=== PATIENT | female | born 1950 | race African-American/Black ===

== ENCOUNTER 2018-02-23 08:18 | Outpatient (CLI) | payer MEDICARE | END 2018-02-23 08:19 | disposition home or self-care (01) | LOC: BICMAMMO 08:18 | PROVIDERS: ATTEND Family Medicine | DX: Z12.31 Encounter for screening mammogram for malignant neoplasm of breast (principal); Z80.3 Family history of malignant neoplasm of breast | CPT/HCPCS: 77063; 77067 ==

== ENCOUNTER 2019-03-02 09:08 | Outpatient (CLI) | payer MEDICARE ==
--- NOTE | 2019-03-02 10:14 | MMO ---
Bilateral MAMMO Bilat Screen [facility]. CLINICAL HISTORY: Patient is 68 years old and is seen for screening. The patient has the following family history of breast cancer: daughter. The patient has no personal history of cancer. VIEWS: The views performed were: bilateral craniocaudal with tomosynthesis and bilateral mediolateral oblique with tomosynthesis. FILMS COMPARED: The present examination has been compared to a prior imaging study performed at [facility] on 02/23/2018. MAMMOGRAM FINDINGS: There are scattered fibroglandular densities. There are no suspicious masses, suspicious calcifications, or new areas of architectural distortion. IMPRESSION: THERE IS NO MAMMOGRAPHIC EVIDENCE OF MALIGNANCY. A ROUTINE FOLLOW-UP MAMMOGRAM IN 1 YEAR IS RECOMMENDED. THE RESULTS OF THIS EXAM WERE SENT TO THE PATIENT. ACR BI-RADS Category 1 - Negative MAMMOGRAPHY NOTE: 1. A negative mammogram report should not delay a biopsy if a dominant of clinically suspicious mass is present. 2. Approximately 10% to 15% of breast cancers are not detected by mammography. 3. Adenosis and dense breasts may obscure an underlying neoplasm.
== END 2019-03-02 09:09 | disposition home or self-care (01) ==
LOC: BICMAMMO 09:08
PROVIDERS: ATTEND Family Medicine
DX: Z12.31 Encounter for screening mammogram for malignant neoplasm of breast (principal); Z80.3 Family history of malignant neoplasm of breast
CPT/HCPCS: 77063; 77067

== ENCOUNTER 2019-06-23 13:22 | Outpatient (CLI) | payer MEDICARE ==
--- NOTE | 2019-06-23 14:27 | ULT ---
RIGHT LOWER EXTREMITY ARTERIAL DOPPLER STUDY: INDICATION: Pain and edema right lower extremity. FINDINGS: Arteries of the right lower extremity were evaluated with color Doppler, spectral analysis, and veloc ity recordings at all segments. FINDINGS: There is normal triphasic waveform seen involving all the arteries of the right lower extremity. Art eries interrogated including the common femoral artery, profunda, superficial femoral artery, poplite al, anterior tibial artery, posterior tibial artery, and dorsal pedis. Velocities are symmetric throughout these vessels. IMPRESSION: No evidence of significant peripheral arterial disease is identified in the right lower extremity by Doppler and spectral analysis. POS: Alvaro
== END 2019-06-23 13:23 | disposition home or self-care (01) ==
LOC: ULT 13:22
PROVIDERS: ATTEND Family Medicine
DX: R60.0 Localized edema (principal)
CPT/HCPCS: 93923

== ENCOUNTER 2019-12-25 11:16 | Observation (INO) | payer MEDICARE ==
[2019-12-25] MEDS ORDERED: diphenhydrAMINE 50 MG/ML VIAL ONE (11:52)
[2019-12-25] MEDS ORDERED: Metoclopramide HCl 10 MG/2 ML VIAL ONE (11:52)
[2019-12-25] MEDS ORDERED: Acetaminophen 500 MG TAB ONE (11:52)
--- NOTE | 2019-12-25 12:16 | CT ---
CT head noncontrast HISTORY: Headache. Hypertension. FINDINGS: There is no evidence of acute intracranial hemorrhage or infarct. Mild diffuse cortical atr ophy and chronic ischemic small vessel disease. There is no mass effect or shift of midline structures. Visualized paranasal sinuses remain well aera bryon. IMPRESSION : Chronic-type findings. No acute intracranial abnormalities are demonstrated.
[2019-12-25 13:11] LABS: #Eosinphils 0.1 thou/uL (0.0-0.7); #Lymphocytes 1.8 thou/uL (1.20-3.40); #Monocytes 0.6 thou/uL (0.11-0.59); #Neutrophils 2.2 thou/uL (1.40-6.50); %Basophils 0.5 % (0.0-1.0); %Eosinophils 1.7 % (0.0-10.0); %Lymphocytes 38.1 % (21.0-51.0); %Monocytes 12.3 % (0.0-10.0); %Neutrophils 47.4 % (42.0-75.0); Hemoglobin 11.2 g/dL (12.0-16.0); Mean Corpuscular HGB CONC 32.4 g/dL (32.0-36.0); Mean Corpuscular Volume 89.5 fL (78.0-98.0); Mean Platelet Volume 8.1 fL (7.4-10.4); Platelet Count 198 thou/uL (130-400); RBC Distribution Width 12.9 % (11.5-14.5); Red Blood Cell (RBC) Count 3.85 mill/uL (4.20-5.40); White Blood Cell (WBC) Count 4.6 thou/uL (4.8-10.8)
[2019-12-25 13:30] LABS: ALT (SGPT) 28 U/L (8-55); AST (SGOT) 30 U/L (5-34); Albumin 3.9 g/dL (3.4-4.8); Alkaline Phosphatase 149 U/L (40-110); Anion Gap 11 mmol/L (10-20); BUN (Urea Nitrogen) 12 mg/dL (9.8-20.1); Bilirubin, Total 0.2 mg/dL (0.2-1.2); Calc. Creatinine Clearance 0 mL/min (70-130); Carbon Dioxide 28 mmol/L (23-31); Chloride 101 mmol/L (98-107); Estimated GFR-MDRD 86; Globulin 3.6 g/dL (2.4-3.5); Glucose 105 mg/dL (80-115); Potassium 3.8 mmol/L (3.5-5.1); Protein, Total 7.5 g/dL (6.0-8.3); Sodium 136 mmol/L (136-145)
[2019-12-25] MEDS ORDERED: Aspirin 81 mg Enteric Coated Tablet ONE (13:42)
[2019-12-25] MEDS ORDERED: Ondansetron PF 4 MG/2 ML Vial IVP PRN ×2 (16:41→18:18)
[2019-12-25] MEDS ORDERED: Bisacodyl 5 MG TAB PO PRN (16:41)
[2019-12-25] MEDS ORDERED: Acetaminophen 325 MG TAB PO PRN (16:41)
[2019-12-25 17:07] VITALS: BMI 31.7
[2019-12-25] MEDS ORDERED: Dextrose 50% Abboject 50 ML SYRINGE SLOW IVP PRN (18:06)
[2019-12-25] MEDS ORDERED: HumaLOG 300 UNITS/3 ML VIAL SC PRN (18:06)
[2019-12-25] MEDS ORDERED: Dextrose 5% in Water 1,000 ML IV PRN (18:06)
[2019-12-25] MEDS ORDERED: SUMAtriptan Succinate 50 MG TAB PO PRN (18:16)
[2019-12-25] MEDS ORDERED: traMADol HCl 50 MG TAB PO PRN (18:17)
[2019-12-25] MEDS ORDERED: metFORMIN 500 MG TAB PO SCH (21:00)
[2019-12-25] MEDS ORDERED: Non-Formulary Item 1 EACH (Fluticasone/Salmeterol [Advair Diskus 250/50] 1 INH) IH SCH (21:00)
[2019-12-25] MEDS ORDERED: rOPINIRole HCl 0.25 MG TAB PO SCH (21:00)
[2019-12-25] MEDS: carBAMazepine 200 MG TAB PO SCH (21:08)
[2019-12-25] MEDS: Heparin 5,000 UNITS/ML VIAL SC SCH (21:09)
--- NOTE | 2019-12-25 22:11 | HP ---
CHIEF COMPLAINT: Blurred vision, dizziness, imbalance. HISTORY OF PRESENTING ILLNESS: This is a 69-year-old female with a history of hypertension, diabetes, insulin-dependent, sarcoidosis, who is chronically on steroids, presented to the ER with 2 weeks of blurred vision and 1 week of complaints of headache with dizziness and imbalance. The patient also saw her program aide group work and according to the program aide group work, it looks like patient's intra-ocular muscles are weak. He did suggest an MRI of her eye in the next week. The patient got concerned because of increasing imbalance and dizziness and presented to the ER. On presentation in the ER, patient's vital signs were within normal limits. CT scan of the head did not show any acute abnormalities. The patient was treated with some pain medication and also migraine medications with significant improvement in dizziness and imbalance and also the headache. PAST MEDICAL HISTORY: Significant for: 1. Hypertension. 2. Diabetes, insulin-dependent. 3. Sarcoidosis. PAST SURGICAL HISTORY: 1. Lung biopsy, exploratory. 2. Surgical history of . PSYCHIATRIC HISTORY: No previous psychiatric history. SOCIAL HISTORY: Patient denies any alcohol use. Denies any drug use or any smoking history. REVIEW OF SYSTEMS: CONSTITUTIONAL: The patient denies any chills. Denies any fever. The patient denies any vision change. ENT: The patient denies any rhinorrhea or sore throat. CARDIOVASCULAR: The patient denies any chest pain, palpitations. RESPIRATORY: The patient denies any cough or shortness of breath. GI: Denies any nausea. MUSCULOSKELETAL: Denies any pain or swelling in the extremities. No edema. NEUROLOGIC: Please see HPI. PSYCHIATRIC: Denies any psychiatric history. PHYSICAL EXAMINATION: CONSTITUTIONAL: Vital signs reviewed and are stable. HEENT: Slight left-sided facial droop. Nystagmus is present, horizontal left gaze. Examination of the nose is within normal limits. Pharynx examination is within normal limits. Normal range of motion of neck, trachea is midline. RESPIRATORY/CHEST: Breath sounds are clear. No wheezing, no rales. Chest movement is symmetrical and expansion is equal. CARDIOVASCULAR: Shows regular rate and rhythm. No murmurs. BACK: Normal for inspection and range of motion is intact. EXTREMITIES: No redness, no swelling, no edema. NEUROLOGIC: Nystagmus is present, horizontal to the left eye, difficulty with [id number] on the left. Slight left-sided facial droop. PSYCHIATRIC: Normal affect. Awake and alert. RADIOLOGY: A CT of the head did not show any acute abnormalities. Code status: DW Patient and she is full code ASSESSMENT AND PLAN: 1. Blurred vision, double vision. 2. Dizziness with imbalance. Admit the patient to rule out CVA, CT of the head is within normal limits, we will follow up on the MRI of the head, MRA of the head and neck without contrast. PT and OT consulted. Start the patient on aspirin and statin. 3. Headache: Address issues of headache, Tylenol, ibuprofen. 4. Diabetes. Continue home insulin and oral hypoglycemics. 5. Hypertension. Please continue all the home medications. 6. Sarcoidosis. Continue home steroids. Job ID: [id number] [facility]
[2019-12-26 05:32] LABS: Band 1 % (5-11); Eosinophils 2 % (0-10); Hemoglobin 11.3 g/dL (12.0-16.0); Hypochromia SLIGHT = 6-15 cells (100X) (0-5/hpf); Lymphocytes 30 % (21-51); MDiff Complete? YES; Mean Corpuscular Hemoglobin 28.8 pg (27.0-31.0); Mean Platelet Volume 8.2 fL (7.4-10.4); Metamyelocyte 1 % (0-0); Monocytes 11 % (0-10); Neutrophil 55 % (42-75); Platelet Count 209 thou/uL (130-400); Platelet Morphology Comment Appears Adequate; RBC Distribution Width 12.8 % (11.5-14.5); Red Blood Cell (RBC) Count 3.92 mill/uL (4.20-5.40); White Blood Cell (WBC) Count 5.4 thou/uL (4.8-10.8)
[2019-12-26] MEDS ORDERED: Furosemide 20 MG TAB PO SCH (06:00)
[2019-12-26] MEDS ORDERED: Mometasone 200 MCG/Formoterol 5 MCG 120 PUFF INHALER INH SCH (06:30)
[2019-12-26] MEDS ORDERED: predniSONE 5 MG TAB PO SCH (08:00)
[2019-12-26 08:10] VITALS: TEMP 98.2
--- NOTE | 2019-12-26 08:24 | MRI ---
Exam: MR angiogram of the neck without contrast HISTORY: Double vision. Hypertension. CVA. COMPARISON: None TECHNIQUE: MR angiography of the neck is performed without contrast. Axial 2-D dshk-fv-vidduw imaging was performed. Maximum intensity projection images are submitted for interpretation FINDINGS: The entire course of the cervical carotid and vertebral arteries is not included on the axial source images. The axial source images demonstrate essentially symmetric flow related signal in the cervical carotid and vertebral arteries. There does not appear to be any significant stenosis. There is mild tortuosity with medial deviation involving the right internal carotid artery with mass effect upon the posterior right hypopharynx. IMPRESSION: No evidence of significant stenosis in the visualized cervical carotid and vertebral senia stone.
--- NOTE | 2019-12-26 08:39 | MRI ---
Exam: MR angiography of the brain HISTORY: CVA. Double vision. Hypertension. COMPARISON: None TECHNIQUE: MRA exam of the brain was performed utilizing axial 3-D xvyn-cd-jqhugw imaging. Maximum in tensity projection images are submitted for interpretation FINDINGS: Symmetric flow related signal in the distal cervical and intracranial internal carotid arteries Anterior circulation: Symmetric flow related signal in the A1 segment, M1 segments, proximal A2 segme nts and proximal MCA branches. No evidence of vascular occlusion, aneurysm or high-grade stenosis Posterior circulation: Limited evaluation of the vertebral arteries. Left vertebral artery is dominan t. Right PICA artery origin appear to be grossly unremarkable. Left PICA artery origin is not appreciated. Both vertebral arteries supply normal caliber basilar artery. Bilateral P1 segments have appropriate flow related signal. No significant stenosis, aneurysm or occlusion. IMPRESSION: No significant stenosis, occlusion or aneurysm at the level of the [place]. Appr opriate flow related signal in the anterior and posterior circulation
--- NOTE | 2019-12-26 08:40 | MRI ---
Exam: Brain MRI without contrast HISTORY: CVA. Double vision. Hypertension. COMPARISON: None FINDINGS: Calvarial marrow signal intensity: Appropriate T1 signal Gradient echo sequence: No hemorrhage Brain parenchyma: No mass, mass effect or midline shift. Brain volume, age-appropriate. Cortical kellogg-white matter differentiation: Preserved Restricted diffusion: Central arterial flow voids are maintained. Absent restricted diffusion White matter signal intensities: T2, FLAIR white matter hyperintensities due to chronic small vessel ischemic changes Sinuses: Small mucous retention cyst in both maxillary sinuses. IMPRESSION: 1. Absent restricted diffusion. No acute infarct 2. Age-appropriate atrophy. 3. Chronic small vessel ischemic changes of white matter.
[2019-12-26] MEDS ORDERED: Non-Formulary Item 1 EACH (Insulin Detemir [Levemir Flextouch] 60 UNIT) SQ SCH (09:00)
[2019-12-26] MEDS ORDERED: Potassium Chloride 10 MEQ TAB PO SCH (09:00)
[2019-12-26] MEDS ORDERED: Multivitamin W/ Minerals 1 TAB PO SCH (09:00)
[2019-12-26] MEDS ORDERED: Amlodipine 10 MG TAB PO SCH (09:00)
[2019-12-26] MEDS ORDERED: Insulin Glargine 60 UNITS in Pre-Filled Syringe 1 EACH SC SCH (09:00)
[2019-12-26] MEDS ORDERED: Alogliptin 25 MG TAB PO SCH (09:00)
[2019-12-26] MEDS ORDERED: Aspirin Chewable 81 MG TAB PO SCH (09:00)
[2019-12-26] MEDS ORDERED: POTASSIUM GLUCONATE 99 MG PO SCH (09:00)
[2019-12-26] MEDS: carBAMazepine 200 MG TAB PO SCH (09:09)
[2019-12-26] MEDS: Heparin 5,000 UNITS/ML VIAL SC SCH (09:13)
[2019-12-26 12:35] VITALS: BP 140/85
--- NOTE | 2019-12-26 20:37 | DIS ---
DATE OF ADMISSION: 12/25/2019 DATE OF DISCHARGE: 12/26/2019 ADMISSION DIAGNOSES: 1. Headache. 2. Blurred vision. 3. Dizziness. 4. Imbalance. 5. Rule out stroke. 6. Hypertension. 7. Diabetes. 8. Sarcoidosis. DISCHARGE DIAGNOSES: 1. Headache. 2. Dizziness. 3. Hypertension. 4. Diabetes. 5. Sarcoidosis. HISTORY OF PRESENTING ILLNESS: A 69-year-old female with a history of hypertension, diabetes, and sarcoidosis, comes in with 2 weeks history of blurred vision, dizziness, sense of imbalance. The patient did visit her top dyeing machine tender and Ophthalmology thought the blurred vision was because of weakness of eye muscles. The patient was admitted under rule out stroke protocol. The patient's admission vital signs were within normal limits. Labs were within normal limits, CT scan of the head did not show any acute changes. The patient on admission did well and MRI of the head and MRA of head and neck without contrast did not show any acute stroke or ischemic changes, aneurysm or hemorrhage. No carotid stenosis was seen. The patient's headache did better with migraine medication. The patient was then discharged for a followup with her top dyeing machine tender and also her primary care physician. DISCHARGE INSTRUCTIONS: 1. Please take medications as prescribed. 2. Heart healthy, diabetic diet. 3. Follow up with the primary care physician and your top dyeing machine tender. 4. Activity as tolerated. Job ID: [id number] [facility]
--- NOTE | 2019-12-29 15:22 | EKG ---
Test Reason : EMERGENCY EXAM Blood Pressure : / mmHG Vent. Rate : 078 BPM Atrial Rate : 078 BPM P-R Int : 178 ms QRS Dur : 106 ms QT Int : 388 ms P-R-T Axes : 009 -49 063 degrees QTc Int : 442 ms Normal sinus rhythm Left anterior fascicular block Abnormal ECG Confirmed by ETIENNE GUILLEN DO ([id number]), brands editor HOSSEIN CARTER ([id number] on 12/29/2019 3:21:58 PM Referred By: Confirmed By:ETIENNE GUILLEN DO
== END 2019-12-26 12:02 | disposition home or self-care (01) ==
LOC: ERS 11:16 → 2SE 14:00
PROVIDERS: ADMIT Family Medicine; ATTEND Family Medicine
DX: R42 Dizziness and giddiness (principal); H53.8 Other visual disturbances; R26.89 Other abnormalities of gait and mobility; R51 Headache; I10 Essential (primary) hypertension; E11.9 Type 2 diabetes mellitus without complications; D86.9 Sarcoidosis, unspecified; Z79.4 Long term (current) use of insulin; Z79.52 Long term (current) use of systemic steroids; Z79.82 Long term (current) use of aspirin; Z79.899 Other long term (current) drug therapy; Z88.8 Allergy status to other drugs, medicaments and biological substances
CPT/HCPCS: 70450; 70544; 70547; 70551; 80053; 82962 ×2; 84484; 85007; 85025; 85027; 93005; 94640; 96365; 96366; 96372 ×2; 96375; 97139 ×3; 99285; G0378 ×3; J1200; J1644 ×2; J1815; J2765; J7512; 36415; 36416

== ENCOUNTER 2020-06-05 09:43 | Outpatient (CLI) | payer MEDICARE ==
--- NOTE | 2020-06-05 12:00 | MMO ---
Bilateral MAMMO Bilat Screen [facility]. CLINICAL HISTORY: Patient is 69 years old and is seen for screening. The patient has the following family history of breast cancer: daughter. The patient has no personal history of cancer. VIEWS: The views performed were: bilateral craniocaudal with tomosynthesis and bilateral mediolateral oblique with tomosynthesis. FILMS COMPARED: The present examination has been compared to prior imaging studies performed at [facility] on 02/23/2018 and 03/02/2019. This study has been interpreted with the assistance of computer-aided detection. MAMMOGRAM FINDINGS: There are scattered fibroglandular densities. There are no suspicious masses, suspicious calcifications, or new areas of architectural distortion. IMPRESSION: THERE IS NO MAMMOGRAPHIC EVIDENCE OF MALIGNANCY. A ROUTINE FOLLOW-UP MAMMOGRAM IN 1 YEAR IS RECOMMENDED. THE RESULTS OF THIS EXAM WERE SENT TO THE PATIENT. ACR BI-RADS Category 1 - Negative MAMMOGRAPHY NOTE: 1. A negative mammogram report should not delay a biopsy if a dominant of clinically suspicious mass is present. 2. Approximately 10% to 15% of breast cancers are not detected by mammography. 3. Adenosis and dense breasts may obscure an underlying neoplasm. Reported by: NUNU CARVAJAL MD Electonically Signed: [id number]
== END 2020-06-05 09:44 | disposition home or self-care (01) ==
LOC: BICMAMMO 09:43
PROVIDERS: ATTEND Family Medicine
DX: Z12.31 Encounter for screening mammogram for malignant neoplasm of breast (principal); Z80.3 Family history of malignant neoplasm of breast
CPT/HCPCS: 77063; 77067

== ENCOUNTER 2020-07-01 09:59 | Outpatient (CLI) | payer MEDICARE, OTHER ==
[2020-07-02 11:07] LABS: SARS-CoV-2 MS2 Positive; SARS-CoV-2 N Gene Negative; SARS-CoV-2 S Gene Negative; SARS-CoV-2 by NAA Not Detected (NotDetected); SARS-CoV-2 orf1ab Negative
== END 2020-07-01 10:00 | disposition home or self-care (01) ==
LOC: LABBT 09:59
PROVIDERS: ATTEND Surgery
DX: C21.0 Malignant neoplasm of anus, unspecified (principal); Z20.828 Contact with and (suspected) exposure to other viral communicable diseases
CPT/HCPCS: 87635; U0003

== ENCOUNTER 2020-07-03 10:13 | Day surgery (SDC) | payer MEDICARE ==
[2020-07-02 14:08] VITALS: BMI 32.5
[2020-07-03] MEDS ORDERED: Bupivacaine/Epinephrine 0.25% 30 ML VIAL ONE (11:38)
[2020-07-03] MEDS ORDERED: Fentanyl 100 MCG/2 ML VIAL ONE (11:38)
[2020-07-03] MEDS ORDERED: PROPOFOL 40 ML ONE (11:38)
[2020-07-03] MEDS ORDERED: Lidocaine 2% PF 5 ML VIAL ONE (11:40)
--- NOTE | 2020-07-03 13:54 | RAD ---
PORTABLE CHEST 1 VIEW: Date: 07/03/2020 Time: 1254 hours HISTORY: MediPort placement. COMPARISON: 01/09/2019. FINDINGS/IMPRESSION: There has been interval placement of a right internal jugular Port-A-Cath with tip in the projection of the SVC> No pneumothoraces are seen. The heart size is stable. The aorta is tortuous. Chronic pare nchymal changes are again noted. POS: OFF
--- NOTE | 2020-07-04 12:21 | OP ---
DATE OF PROCEDURE: 07/03/2020 PREOPERATIVE DIAGNOSIS: Anal squamous cell cancer. POSTOPERATIVE DIAGNOSIS: Anal squamous cell cancer. PROCEDURE PERFORMED: Tunneled central line with subcutaneous port (MediPort, CT injectable). ANESTHESIA: TIVA, local. ESTIMATED BLOOD LOSS: Minimal. COMPLICATIONS: None. SPECIMEN: None. FINDINGS: Tip of the catheter was at the atriocaval junction. TECHNIQUE: The patient was taken to the operating room and laid on the supine on the operating room table. After sedation was obtained, bilateral neck and chest were prepped and draped in a sterile fashion. Local anesthetic infiltrated over the right internal jugular vein. Internal jugular vein was cannulated using a 22-gauge finer needle followed by a Seldinger needle. Wire was passed under no tension under fluoro guidance. A small bj was made at the wire entrance site. A separate 3-cm incision made in the right upper chest. Subcutaneous pocket made below the lower incision. Tubing for the MediPort tunneled from the inferior to the superior incision, and suture sheath was placed over the wire into the superior vena cava under fluoro guidance. The dilator and wire were removed. The end of the catheter threaded into the sheath. The sheath was peeled away. The tip of the catheter was at the atriocaval junction. MediPort tubing was cut to fit the MediPort at the lower incision, connected to the MediPort. The MediPort sewn to the chest wall in a subcutaneous pocket using Prolene. The MediPort flushes and draws blood without difficulties, flushed with a heparin flush. The wounds were all irrigated and closing 3-0 Vicryl, 4-0 Monocryl and Dermabond. The patient was sent to Recovery in stable condition. All instrument counts, needle counts, lap counts were correct. Job ID: [id number]
== END 2020-07-03 14:25 | disposition home or self-care (01) ==
LOC: SDC 10:13
PROVIDERS: ATTEND Surgery
PROC: 02HV33Z Insertion of Infusion Device into Superior Vena Cava, Percutaneous Approach (ICD-10-PCS; principal; 2020-07-03)
DX: C21.0 Malignant neoplasm of anus, unspecified (principal); E11.9 Type 2 diabetes mellitus without complications; I10 Essential (primary) hypertension; Z79.4 Long term (current) use of insulin; Z79.82 Long term (current) use of aspirin; Z79.899 Other long term (current) drug therapy; Z88.8 Allergy status to other drugs, medicaments and biological substances
CPT/HCPCS: 36561; 71045; C1788; J0690; J1642; J2001; J2704; J3010

== ENCOUNTER 2020-12-02 10:21 | Outpatient (CLI) | payer MEDICARE ==
[~2020-12-02 10:21] MED LIST: Iopamidol-370 76% 500 ML 1 ML ONE
[2020-12-02 10:57] LABS: Estimated GFR-MDRD - POC Greater than 90
== END 2020-12-02 10:22 | disposition home or self-care (01) ==
LOC: BICCT 10:21
PROVIDERS: ATTEND Internal Medicine Hematology & Oncology
DX: R93.89 Abnormal findings on diagnostic imaging of other specified body structures (principal); R59.0 Localized enlarged lymph nodes; I28.1 Aneurysm of pulmonary artery; E27.8 Other specified disorders of adrenal gland; J47.9 Bronchiectasis, uncomplicated; J98.4 Other disorders of lung; Z85.048 Personal history of other malignant neoplasm of rectum, rectosigmoid junction, and anus; Z92.21 Personal history of antineoplastic chemotherapy
CPT/HCPCS: 71260; 74177; 82565; Q9967

== ENCOUNTER 2021-08-06 10:15 | Outpatient (CLI) | payer MEDICARE | END 2021-08-06 10:16 | disposition home or self-care (01) | LOC: BICMAMMO 10:15 | PROVIDERS: ATTEND Family Medicine | DX: Z12.31 Encounter for screening mammogram for malignant neoplasm of breast (principal); Z80.3 Family history of malignant neoplasm of breast | CPT/HCPCS: 77063; 77067 ==

== ENCOUNTER 2021-11-10 07:31 | Outpatient (CLI) | payer MEDICARE ==
[2021-11-10 08:25] LABS: #Eosinphils 0.2 10x3/uL (0.0-0.5); #Monocytes 0.7 10x3/uL (0.0-1.1); #Neutrophils 3.1 10x3/uL (1.5-8.4); %Basophils 0.8 % (0.0-2.0); %Lymphocytes 21.2 % (18.0-47.0); %Monocytes 13.9 % (0.0-10.0); %Neutrophils 60.7 % (40.0-75.0); Hemoglobin 11.1 g/dL (12.0-15.5); Mean Corpuscular HGB CONC 30.9 g/dL (32.0-36.0); Mean Corpuscular Hemoglobin 27.9 pg (27.0-33.0); Mean Corpuscular Volume 90.2 fl (81.6-98.3); Mean Platelet Volume 9.9 fl (7.4-10.4); Platelet Count 195 10x3/uL (150-450); RBC Distribution Width 16.9 % (11.5-14.5); Red Blood Cell (RBC) Count 3.98 10x6/uL (3.90-5.03)
[2021-11-10 08:39] LABS: ALT (SGPT) 74 U/L (8-55); AST (SGOT) 77 U/L (5-34); Alkaline Phosphatase 154 U/L (40-110); Anion Gap 13 mmol/L (10-20); BUN (Urea Nitrogen) 13 mg/dL (9.8-20.1); Bilirubin, Total 0.2 mg/dL (0.2-1.2); Calc. Creatinine Clearance 0 mL/min (70-130); Calcium 9.2 mg/dL (7.8-10.44); Carbon Dioxide 30 mmol/L (23-31); Chloride 100 mmol/L (98-107); Globulin 3.4 g/dL (2.4-3.5); Glucose 186 mg/dL (83-110); Potassium 4.9 mmol/L (3.5-5.1); Protein, Total 7.4 g/dL (5.8-8.1); Sodium 138 mmol/L (136-145)
[2021-11-11 00:04] LABS: SARS-CoV-2 PCR by NAA Not Detected (NotDetected)
== END 2021-11-10 07:32 | disposition home or self-care (01) ==
LOC: LABBT 07:31
PROVIDERS: ATTEND Internal Medicine Cardiovascular Disease
DX: Z01.812 Encounter for preprocedural laboratory examination (principal); R06.00 Dyspnea, unspecified; Z20.822 Contact with and (suspected) exposure to COVID-19
CPT/HCPCS: 80053; 85025; U0003; U0005

== ENCOUNTER 2022-08-27 08:40 | Outpatient (CLI) | payer MEDICARE | END 2022-08-27 08:41 | disposition home or self-care (01) | LOC: BICMAMMO 08:40 | PROVIDERS: ATTEND Family Medicine | DX: Z12.31 Encounter for screening mammogram for malignant neoplasm of breast (principal); Z80.3 Family history of malignant neoplasm of breast | CPT/HCPCS: 77063; 77067 ==

== ENCOUNTER 2022-11-10 09:48 | Outpatient (CLI) | payer MEDICARE | END 2022-11-10 09:49 | disposition home or self-care (01) | LOC: BICCT 09:48 | PROVIDERS: ATTEND Internal Medicine Hematology & Oncology | DX: C21.1 Malignant neoplasm of anal canal (principal); D50.0 Iron deficiency anemia secondary to blood loss (chronic); R59.0 Localized enlarged lymph nodes; K80.20 Calculus of gallbladder without cholecystitis without obstruction; K74.60 Unspecified cirrhosis of liver; I28.1 Aneurysm of pulmonary artery | CPT/HCPCS: 71260; 74177; 82565; Q9967 ==

== ENCOUNTER 2023-10-22 09:28 | Outpatient (CLI) | payer BC, MEDICARE | END 2023-10-22 09:29 | disposition home or self-care (01) | LOC: BICMAMMO 09:28 | PROVIDERS: ATTEND Family Medicine | DX: Z12.31 Encounter for screening mammogram for malignant neoplasm of breast (principal); Z80.3 Family history of malignant neoplasm of breast | CPT/HCPCS: 77063; 77067 ==

== ENCOUNTER 2024-08-28 08:39 | Outpatient (CLI) | payer MEDICARE | END 2024-08-28 08:40 | disposition home or self-care (01) | LOC: BICMAMMO 08:39 | PROVIDERS: ATTEND Family Medicine | DX: Z13.820 Encounter for screening for osteoporosis (principal); M85.89 Other specified disorders of bone density and structure, multiple sites | CPT/HCPCS: 77080 ==

== ENCOUNTER 2025-07-30 08:25 | Outpatient (CLI) | payer MEDICARE | END 2025-07-30 08:26 | disposition home or self-care (01) | LOC: SCSMRI 08:25 | PROVIDERS: ATTEND Registered Nurse | DX: M47.817 Spondylosis without myelopathy or radiculopathy, lumbosacral region (principal); M47.816 Spondylosis without myelopathy or radiculopathy, lumbar region; M25.48 Effusion, other site; M53.2X6 Spinal instabilities, lumbar region; M48.061 Spinal stenosis, lumbar region without neurogenic claudication; M48.07 Spinal stenosis, lumbosacral region | CPT/HCPCS: 72148 ==